=== PATIENT | male | born 1990 | race Caucasian/White ===

== ENCOUNTER 2019-07-11 14:48 | Emergency (ER) | payer MEDICAID ==
[~2019-07-11] VITALS: Ht 165.1 cm; Wt 59.0 kg
[2019-07-11] MEDS ORDERED: LIDOCAINE 1% HCL (LOCAL ANESTH.) INJ 20ML MDV ID ONE (19:15)
[2019-07-11] MEDS ORDERED: TETANUS-DIPTH-ACEL PERTUSSIS 0.5ML SYRG IM ONE (19:30)
[2019-07-11 20:23] VITALS: BP 129/66
== END 2019-07-11 20:24 | disposition home or self-care (01) ==
LOC: ER 14:57
DX: S61.211A Laceration without foreign body of left index finger without damage to nail, initial encounter (principal); Z23 Encounter for immunization; W26.9XXA Contact with unspecified sharp object(s), initial encounter; Y93.89 Activity, other specified; Y92.89 Other specified places as the place of occurrence of the external cause; Y99.8 Other external cause status
CPT/HCPCS: 12001; 90471; 90715